=== PATIENT | male | born 1945 | race Caucasian/White ===

== ENCOUNTER 2018-04-08 09:29 | Observation (INO) ==
[2018-04-08] MEDS ORDERED: Ondansetron 4 MG/2 ML VIAL IVP PRN (13:27)
--- NOTE | 2018-04-08 13:33 | Internal Med History&Physical ---
Date of Encounter: 04/08/18 Time of Encounter: 13:33 Internal Medicine - H&P: HPI Chief complaint: transferred due to elevated troponin Plans for Post Hospital Care: Home History of present illness: Mr. Fernandez is a 72 year old male asked medical history of coronary artery disease with last stent in 2014, diabetes, hypertension, depression, atrial fibrillation, CHF was sent in from [facility] for elevated troponin and NSTEMI. Patient went to ER with complaint of confusion brought in by family for past 2-3 weeks increased or past week. Unsure whether patient is compliant with his medication. Patient did fell about 3 weeks ago and bumped into his head. Patient was evaluated in ER with head CT which did not show any signs of bl eeding however showed encephalomalacia. Patient was also found to have elevated troponin which trended up with peak of 0.255. EKG showed atrial fibrillation without any ischemic changes. Patient did not have any chest pain at any point in time. Patient was started on heparin drip and transferred to our hospital. Patient family mentioned that he did appear to have some shortness of breath with exertion and that he appeared confused at times. BMP, Urine tox screening and urinalysis were unremarkable at [facility]. Patient did have mild white count of 11.9. His INR was subtherapeutic. Patient's family did mention that his blood pressure was high in the 190s during initial evaluation at [facility]. He denied any history of fevers chills nausea vomiting abdominal pain urinary or bowel complaints. Family mentioned he does have some leg swelling on a chronic basis and midodrine have gained some weight with past 6-8 months. Patient was interviewed at bedside on floors with family at bedside. He denied any chest pain nausea vomiting sweating or palpitation. As per family patient still not completely at his baseline. Denies any weakness or numbness or any vision difficulties. He does have some left-sided hearing problem for past 6 months. Patient currently on nitroglycerin drip and heparin drip. Patient wants to eat. Past Med Surg Social Fam HX - Past Medical History Medical history: atrial fibrillation, CHF, coronary artery disease, myocardial infarction Psychiatric history: anxiety, depression - Past Surgical History Additional surgical history: heart stents, basal cell carcinoma Lt face. - Social History Smoking Status: Former smoker Alcohol use: none Drug use: none - Family History Father Age at : 52 Cause of : heart attack Hx Family Cardiac Disorders: Yes (pacemaker at age 36) Mother Hx Family Cancer: Yes (lung cancer) Internal Medicine - H&P: Meds Aspirin [Adult Aspirin] 81 mg PO DAILY 04/08/18 [History] Carvedilol [Coreg] 12.5 mg PO BIDWM 04/08/18 [History] Escitalopram [Lexapro] 20 mg PO DAILY 04/08/18 [History] Glimepiride [Amaryl] 1 mg PO BIDWM 04/08/18 [History] Warfarin [Coumadin] 8 mg PO DAILY@1800 04/08/18 [History] metFORMIN [Glucophage] 1,000 mg PO BIDWM 04/08/18 [History] Allergy/AdvReac Type Severity Reaction Status Date / Time bee venom protein (honey bee) Allergy Anaphylaxis Verified 04/08/18 13:18 All Systems PM: A 10-system review of systems was performed and is negative for pertinent findings except as documented above in the HPI. - Constitutional Vitals: Temp Pulse Resp BP Pulse Ox 98.4 F 81 85 127/79 97 04/08/18 12:04 04/08/18 12:04 04/08/18 12:04 04/08/18 12:04 04/08/18 12:04 Exam: Constitutional: Vitals as noted. Conversant. No Apparent Distress. Morbidly obese Eyes : Sclera white, conjunctiva clear, no lid lag, PEARLA. Lt lower eyelid ectropion from facial scar. ENT : decreased hearing on Lt . Oropharyngeal exam unremarkable. Normal appearing external canal. couldnt perform otoscopic exam as instrument unavailable. Respiratory : Clear to auscultation bilaterally. No accessory muscle use, rales, rhonchi or wheezes Cardiovascular : RRR, +S1, +S2. no murmur, gallop, rubs. No chest wall tenderness GI/Abdominal : Obese, Soft, Non-tender, Non-distended, normal bowel sounds, soft, no peritoneal signs. no orgenomegaly or mass appreciated. no hernia. Musculoskeletal: no deformity noted. 1+ b/l edema, pulses palpable and symmetrical in UE/LE. no calf tenderness. Neurological: AO X3, CN II-XII grossly intact, grossly normal motor and sensory exam. Left sided facial scar. Skin: No skin rash, lesions or ulcers noted. Internal Med - H&P Results - Labs CBC & Chem 7: 04/08/18 13:13 Labs: Labs, CXR , CT reports reviewed - EKG Data -: EKG Interpreted by Myself (afib without acute ischemic changes) - Assessment and plan (1) Elevated troponin I level Current Visit: Yes Status: Acute Assessment and plan: - Peaked at 0.255 - We will trend troponin - Currently without chest pain - Echocardiogram - Possibly related to uncontrolled hypertension versus NSTEMI. Continue heparin for now - Cardiology consulted. (2) Confusion Current Visit: Yes Status: Acute Assessment and plan: - CT unremarkable - No focal deficit or weakness. - Given patient a history of A. fib and INR subtherapeutic we will obtain MRI to rule out ischemic stroke. However if symptoms ongoing for weeks it should appear on CT scan. 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 Rate controlled - Currently on heparin drip. Qualifiers: Atrial fibrillation type: chronic Qualified Code(s): I48.2 - Chronic atrial fibrillation (5) DVT prophylaxis Current Visit: Yes Status: Acute Assessment and plan: On heparin drip (6) HTN (hypertension) Current Visit: Yes Status: Acute Assessment and plan: - Currently blood pressure controlled. - Continue home Coreg and monitor blood pressure for now. Qualifiers: Hypertension type: essential hypertension Qualified Code(s): I10 - Essential (primary) hypertension (7) Depression Current Visit: Yes Status: Acute Assessment and plan: Continue home Lexapro Qualifiers: Depression Type: unspecified Qualified Code(s): F32.9 - Major depressive di sorder, single episode, unspecified (8) Hypertensive emergency Current Visit: Yes Status: Acute Assessment and plan: - Possible on presentation at [facility] leading to elevated troponin - Monitor and management as above - When necessary hydralazine 10 q8 IV for sbp >160 (9) CAD (coronary artery disease) Current Visit: Yes Status: Acute Assessment and plan: - Continue aspirin and Coreg - Unclear why patient not on statin - We will start patient on atorvastatin 40 mg at bedtime Qualifiers: Coronary Disease-Associated Artery/Lesion type: [place] artery [place] vs. transplanted heart: [place] heart Associated angina: without angina Qualified Code(s): I25.10 - Atherosclerotic heart disease of [place] coronary artery without angina pectoris - Time Spent With Patient Total time spent is greater than 50% in coordination of care (as documented) at patient's floor/unit and/or counseling patient:
[2018-04-08] MEDS ORDERED: *HR* Dextrose 50 % in Water (Syg) 50 ML SYRINGE IVP PRN (13:36)
[2018-04-08] MEDS ORDERED: Dextrose 4 GM Chewable Tablets PO PRN ×2 (13:36)
[2018-04-08] MEDS ORDERED: D5% in Water 1,000 ML IVC PRN (13:36)
[2018-04-08] MEDS ORDERED: Dextrose Gel 15 GM/37.5 ML TUBE PO PRN ×2 (13:36)
[2018-04-08] MEDS ORDERED: *HR* Heparin 5,000 UNIT/ML VIAL IVP PRN (13:40)
[2018-04-08 14:07] LABS: Heparin anti-factor XA UFH 0.21 IU/mL (0.30-0.70)
[2018-04-08 14:12] LABS: Hematocrit 43.8 % (37.5-50.1); Hemoglobin 14.5 g/dL (12.9-16.9); Mean Corpuscular HGB Conc 33.1 g/dL (31.6-35.5); Mean Corpuscular Hemoglobin 29.8 pg (28.0-33.3); Mean Corpuscular Volume 89.9 fL (83.0-100.0); Mean Platelet Volume 11.3 fL (9.4-12.4); Platelet Count 208 K/mcL (140-400); Red Blood Count 4.87 M/mcL (4.19-5.50); Red Cell Distribution Width 12.8 % (11.5-14.5)
[2018-04-08 14:25] LABS: INR 1.4; Prothrombin Time 15.5 Seconds (9.4-12.1)
[2018-04-08] MEDS: Heparin 25,000 UNIT/500 ML D5W 25,000 UNIT/500 ML BAG IVC SCH (14:30)
[2018-04-08] MEDS: *HR* Heparin 5,000 UNIT/ML VIAL IVP PRN ×2 (14:30→21:41)
--- NOTE | 2018-04-08 15:12 | Cardiology Consult Note ---
<Rubio Moss - Last Filed: 04/08/18 15:31> Date of Encounter: 04/08/18 Time of Encounter: 15:10 Assessment and Plan Discussion w patient/family: The assessment and plan as outlined above was discussed with the patient and/or family members who expressed understanding and agreement. All questions were answered. Thank you for involving us in the care of your patient. Please call with any questions. History of Present Illness Consult date: 04/08/18 Consult reason: Elevated Troponin Chief complaint: AMS History of present illness: Mr. Fernandez is a 72 year old male presenting as transfer from [facility] for elevated Troponin. Patient with family at bedside States PMHx of NM x2 with 4 stents placed (most recent in 2014) Significant cardiac meds: ASA, carvedilol, and Coumadin. Patient family admit to significant past family history of stroke and heart attack. History of present illness as documented by staff at [facility] states patient has been confused for the past several months and has also been experiencing exertional dyspnea and fatigue. states patient fell about 3 weeks ago hit his head on the bathtub did not seek treatment at that time. states the patient's confusion has been getting worse since that event. is unsure if patient is compliant with his medication and she leaves during the day today at work. describes several episodes of confusion such as the patient looking for cigarettes when he has not been a smoker for the past 20 years. Patient also states that he has been asking if the [place] tree has been taken down although this was done sometime ago. Notable labs at [facility] included an INR of 1.35 Troponins elevated with peak at 0.255 EKG performed today at outside facility shows atrial fibrillation with a rate of 86 bpm. There are no signs of acute ischemic change. EKG is generally consistent with previous EKG performed on April 07. Patient seen and evaluated at bedside. Upon initial evaluation patient is lying in hospital bed, he is awake, alert, engaged conversation answering questions appropriately, he is in no acute distress, nondiaphoretic, noncyanotic, there are no overt focal neurological deficits appreciated. Patient admits to 5 out of 10 headache as well as fatigue and weakness. Patient denies shortness of breath at rest but admits to profound exertional dyspnea. Patient denies chest pain, nausea/abdominal pain, paresthesias, lightheadedness dizziness. -Patient asymptomatic at this time from a cardiac perspective -EKG without signs of acute ischemic change > Serial troponins overnight > Echocardiogram > Repeat EKG Past Med Surg Social Fam HX - Past Medical History Medical history: atrial fibrillation, CHF, diabetes, myocardial infarction Psychiatric history: anxiety, depression - Past Surgical History Surgical History: angioplasty/stent Additional surgical history: basal cell carcinoma removal (face), stents x4 - Social History Smoking Status: Former smoker Smokeless Tobacco Status: No Alcohol use: none Drug use: none - Family History Father Age at : 52 Cause of : heart attack Hx Family Cardiac Disorders: Yes (pacemaker at age 36) Mother Hx Family Cancer: Yes (lung cancer) Medications and Allergies Aspirin [Adult Aspirin] 81 mg PO DAILY 04/08/18 [History] Carvedilol [Coreg] 12.5 mg PO BIDWM 04/08/18 [History] Escitalopram [Lexapro] 20 mg PO DAILY 04/08/18 [History] Glimepiride [Amaryl] 1 mg PO BIDWM 04/08/18 [History] Warfarin [Coumadin] 8 mg PO DAILY@1800 04/08/18 [History] metFORMIN [Glucophage] 1,000 mg PO BIDWM 04/08/18 [History] Allergy/AdvReac Type Severity Reaction Status Date / Time bee venom protein (honey bee) Allergy Anaphylaxis Verified 04/08/18 13:18 All Systems Review: The remainder of the systems were reviewed and are negative Review of Systems: As per history of present illness. All systems reviewed and negative except as stated Physical Examination Vital Signs, Last 4 Hours Temp Pulse Resp BP Pulse Ox 04/08/18 12:04 98.4 F 81 85 127/79 97 General: Conversant, No Apparent Distress HEENT: Atraumatic, Normocephaly, Mucus Membranes Moist Neck: No JVD Cardiac: Reg Rate and Rhythm, Normal S1 and S2, No Murmur Lungs: Normal Breath Sounds, No Wheeze, Rales, Rhonchi Neuro: Alert and responsive, No focal deficits noted, Other (Patient is moving all 4 limbs spontaneously without signs of overt focal weakness) Abdomen: Soft, Non-Tender Musculoskeletal: No Chest Wall Tenderness Extremities: No Clubbing, No Cyanosis, No Edema, Normal Pulses Results 04/08/18 13:13 Lab Results 04/08/18 04/08/18 13:13 13:13 WBC 10.1 Hgb 14.5 Hct 43.8 Plt Count 208 INR 1.4 - Imaging and Cardiology Echo: pending - EKG Interpretation EKG results cardiology: personally reviewed, no diagnostic ischemia Consult Discharge Plan - Plan Referrals: Bebe Hansen [Primary Care Provider] - <Sonya Lakhani - Last Filed: 04/09/18 11:47> Date of Encounter: 04/09/18 - Attending Attestation Patient was seen and evaluated independently by me 2 pm. Findings, assessment and plan were discussed at length with patient, questions answered. Agree with nurse practitioner's/resident's documentation. Addition as follows, 72 yoCM ho CAD PCI (OSH), PAF on warfarin, HTN. P/w confusion to OSED with significantly elevated BP in ED 160s/100s. Consulted for mildly elevated troponin peaked 0.3 down trended on heparin drip. No FARLEY, cp, dyspnea, palpitations. ECG afib w/o RVR. TTE pending. CTA, IR, no LE edema A: AMS, CVA w/u ongoing HTN BP fluctuation mild troponin elevation, type II likely CAD, no angina PAF, on warfarin, subtherapeutic INR, rate ctr ok P: pending brain MRI pending TTE BP ctr c/w heparin drip Sonya Lakhani MD, PhD Assessment and Plan Discussion w patient/family: The assessment and plan as outlined above was discussed with the patient and/or family members who expressed understanding and agreement. All questions were answered. Thank you for involving us in the care of your patient. Please call with any questions. History of Present Illness History of present illness: Mr. Fernandez is a 72 year old male All Systems Review: The remainder of the systems were reviewed and are negative Results 04/09/18 04:14 04/09/18 04:14 Lab Results 04/08/18 04/08/18 04/08/18 13:13 13:13 15:21 WBC 10.1 Hgb 14.5 Hct 43.8 Plt Count 208 INR 1.4 Sodium Potassium Chloride Carbon Dioxide BUN Creatinine Glucose Calcium Total Bilirubin AST ALT Alkaline Phosphatase Troponin I 0.07 H* 04/09/18 04/09/18 04:14 04:14 WBC 9.4 Hgb 14.6 Hct 43.9 Plt Count 209 INR Sodium 137 Potassium 3.5 Chloride 104 Carbon Dioxide 25 BUN 14 Creatinine 1.01 Glucose 161 H Calcium 8.6 Total Bilirubin 0.9 AST 12 L ALT 10 Alkaline Phosphatase 69 Troponin I 0.06 H*
[2018-04-08] MEDS ORDERED: *HR* Glimepiride 2 MG TABLET PO SCH (17:00)
[2018-04-08] MEDS ORDERED: *HR* Metformin 500 MG TABLET PO SCH (17:00)
[2018-04-08] MEDS: Insulin LISPRO 300 UNITS/3 ML VIAL SQ SCH (17:04)
[2018-04-08] MEDS ORDERED: *HR* Warfarin 4 MG TABLET PO SCH (18:00)
[2018-04-08] MEDS ORDERED: Perflutren Lipid Microsphere 1.3 ML in 0.9 % Sodium Chloride 8.7 ML IVP ONE (18:27)
[2018-04-09 04:27] LABS: Basophils # 0.1 K/mcL (0.0-0.2); Basophils % 0.9 %; Eosinophils # 0.4 K/mcL (0.0-0.6); Eosinophils % 4.5 %; Hematocrit 43.9 % (37.5-50.1); Hemoglobin 14.6 g/dL (12.9-16.9); Immature Granulocytes % 0.2 % (0-4); Lymphocytes # 2.3 K/mcL (0.6-4.6); Lymphocytes % 24.2 %; Mean Corpuscular HGB Conc 33.3 g/dL (31.6-35.5); Mean Corpuscular Hemoglobin 29.7 pg (28.0-33.3); Mean Corpuscular Volume 89.4 fL (83.0-100.0); Monocytes # 0.7 K/mcL (0.0-1.3); Neutrophils # 5.9 K/mcL (1.6-8.9); Platelet Count 209 K/mcL (140-400); Red Blood Count 4.91 M/mcL (4.19-5.50); Red Cell Distribution Width 12.7 % (11.5-14.5); Segmented Neutrophils % 63.2 %
[2018-04-09 04:47] LABS: Alanine Aminotransferase 10 Units/L (7-52); Albumin 3.4 g/dL (3.5-5.7); Albumin/Globulin Ratio 1.2 (1.1-2.2); Alkaline Phosphatase 69 Units/L (34-104); Aspartate Amino Transferase 12 Units/L (13-39); BUN/Creatinine Ratio 14 (6-26); Bilirubin,Total 0.9 mg/dL (0.3-1.0); Blood Urea Nitrogen 14 mg/dL (8-23); Calcium 8.6 mg/dL (8.6-10.3); Carbon Dioxide 25 mEq/L (23-29); Chloride 104 mEq/L (98-107); Globulin 2.9 g/dL (2.4-3.5); Glucose 161 mg/dL (70-105); Osmolality,Calculated 288 (280-300); Potassium 3.5 mEq/L (3.5-5.1); Sodium 137 mEq/L (136-145); Total Protein 6.3 g/dL (6.4-8.9); eGFR For Non-African Americans > 60 (> 60)
[2018-04-09 04:52] LABS: Troponin I 0.06 ng/mL (< 0.04)
[2018-04-09] MEDS: Insulin LISPRO 300 UNITS/3 ML VIAL SQ SCH ×3 (07:42→16:46)
[2018-04-09] MEDS: Aspirin Enteric Coated 81 MG Tablet PO SCH (07:42)
[2018-04-09] MEDS: Heparin 25,000 UNIT/500 ML D5W 25,000 UNIT/500 ML BAG IVC SCH (07:44)
[2018-04-09 08:00] LABS: Estimated Average Glucose 177 mg/dl; Hemoglobin A1C 7.8 %
--- NOTE | 2018-04-09 08:53 | Cardiology Progress Note ---
<Rubio Moss - Last Filed: 04/09/18 12:04> Date of Encounter: 04/09/18 Time of Encounter: 08:51 Assessment and Plan Discussion w patient/family: The assessment and plan as outlined above was discussed with the patient and/or family members who expressed understanding and agreement. All questions were answered. Thank you for involving us in the care of your patient. Please call with any questions. Subjective Principal diagnosis: Altered mental status Interval history: Patient seen and evaluated bedside. Upon initial evaluation patient is sitting upright onset of hospital bed, he is awake, alert, engaged to conversation answering questions appropriately without conversational dyspnea. Patient is in no acute distress, he is noncyanotic, nondiaphoretic, and appears to have no acute focal neurological deficits appreciated. Patient states that he feels well today and would like to go home. Patient admits to some nausea with eating. Patient denies chest pain, shortness of breath, neck or back pain, generalized abdominal pain, paresthesias in his extremities, lightheadedness or dizziness. Patient found to have acute left sided thalamic lacunar stroke on MRI Echocardiogram shows "LVEF 60-65%. with Moderate concentric left ventricular hypertrophy...Mild mitral regurgitation." Troponins trending downward, currently 0.06. > Continue heparin gtt pending neurology recommendations for restarting Coumadin. > Cardiology will sign off. Please re-consult as needed. Objective Vital Signs, Last 4 Hours Temp Pulse Resp BP Pulse Ox 04/09/18 06:22 98.2 F 74 20 164/98 96 General: Conversant, No Apparent Distress HEENT: Atraumatic, Normocephaly, Mucus Membranes Moist Neck: No JVD Cardiac: Normal S1 and S2, No Murmur, Other (Irregular rhythm noted - known history of A. fib. Otherwise regular rate) Lungs: Normal Breath Sounds, No Wheeze, Rales, Rhonchi Neuro: Alert and responsive, No focal deficits noted Abdomen: Soft, Non-Tender Musculoskeletal: No Chest Wall Tenderness Extremities: No Clubbing, No Cyanosis, No Edema, Normal Pulses Results 04/09/18 04:14 04/09/18 04:14 Lab Results 04/08/18 04/08/18 04/08/18 13:13 13:13 15:21 WBC 10.1 Hgb 14.5 Hct 43.8 Plt Count 208 INR 1.4 Sodium Potassium Chloride Carbon Dioxide BUN Creatinine Glucose Calcium Total Bilirubin AST ALT Alkaline Phosphatase Troponin I 0.07 H* 04/09/18 04/09/18 04:14 04:14 WBC 9.4 Hgb 14.6 Hct 43.9 Plt Count 209 INR Sodium 137 Potassium 3.5 Chloride 104 Carbon Dioxide 25 BUN 14 Creatinine 1.01 Glucose 161 H Calcium 8.6 Total Bilirubin 0.9 AST 12 L ALT 10 Alkaline Phosphatase 69 Troponin I 0.06 H* - EKG Interpretation EKG results cardiology: personally reviewed, no diagnostic ischemia (Atrial fibrillation at a rate of 84 bpm.) Consult Discharge Plan - Plan Referrals: Bebe Hansen [Primary Care Provider] - <Sonya Lakhani - Last Filed: 04/09/18 14:02> Date of Encounter: 04/09/18 Assessment and Plan Discussion w patient/family: The assessment and plan as outlined above was discussed with the patient and/or family members who expressed understanding and agreement. All questions were answered. Thank you for involving us in the care of your patient. Please call with any questions. Objective Vital Signs, Last 4 Hours Temp Pulse Resp BP Pulse Ox 04/09/18 13:49 98.1 F 79 20 138/85 93 Results 04/09/18 04:14 04/09/18 04:14 Lab Results 04/08/18 04/08/18 04/08/18 13:13 13:13 15:21 WBC 10.1 Hgb 14.5 Hct 43.8 Plt Count 208 INR 1.4 Sodium Potassium Chloride Carbon Dioxide BUN Creatinine Glucose Calcium Total Bilirubin AST ALT Alkaline Phosphatase Troponin I 0.07 H* 04/09/18 04/09/18 04:14 04:14 WBC 9.4 Hgb 14.6 Hct 43.9 Plt Count 209 INR Sodium 137 Potassium 3.5 Chloride 104 Carbon Dioxide 25 BUN 14 Creatinine 1.01 Glucose 161 H Calcium 8.6 Total Bilirubin 0.9 AST 12 L ALT 10 Alkaline Phosphatase 69 Troponin I 0.06 H* - Attending Attestation Patient was seen and evaluated independently by me. Findings, assessment and plan were discussed in detail with patient, questions answered. Agree with nurse practitioner's/resident's documentation. Addition as follows, Interim Brain MRI acute L-thalamus lucunar infarct. No complaint, generally feels better. No cp, palpitations, no O2 requirement. BP mild fluctuation, IIR, CTA, no LE edema. TTE EF 60-65%, mod LVH, RV nl, mild MR, no PH A: Acute L-thalamus lucunar infarct Mild troponin elevation, likely type II PAF, subtherapeutic INR, on heparin drip, rate ctr ok HTN CAD P: resume warfarin after ok by neurology c/w ASA, statin, coreg BP control Sonya Lakhani MD, PhD
--- NOTE | 2018-04-09 10:10 | Internal Med Progress Note ---
Hospitalist Progress Note - Encounter Date of Encounter: 04/09/18 Time of Encounter: 10:10 - Subjective Interval History: patient seen and examined this morning at beside. Denies new complains. AOx2. Denies chest pain, shortness of breath, urinary or bowel complains. - Exam Vitals: Temp Pulse Resp BP Pulse Ox 98.2 F 74 20 164/98 96 04/09/18 06:22 04/09/18 06:22 04/09/18 06:22 04/09/18 06:22 04/09/18 06:22 Exam: Constitutional: Vitals as noted. Conversant. No Apparent Distress. Morbidly obese Eyes : PEARLA. Lt lower eyelid ectropion from facial scar. ENT : decreased hearing on Lt. Respiratory : Clear to auscultation bilaterally. No accessory muscle use, rales, rhonchi or wheezes Cardiovascular : RRR, +S1, +S2. no murmur, gallop, rubs. No chest wall tenderness GI/Abdominal : Obese, Soft, Non-tender. Non-distended, normal bowel sounds, soft, no peritoneal signs. no orgenomegaly or mass appreciated. no hernia. Musculoskeletal: no deformity noted. 1+ b/l edema, pulses palpable and symmetrical in UE/LE. no calf tenderness. Neurological: AO X2, CN II-XII grossly intact, grossly normal motor and sensory exam. Left sided facial scar. Skin: No skin rash, lesions or ulcers noted. - Assessment and Plan (1) Elevated troponin I level Current Visit: Yes Status: Acute (2) Confusion Current Visit: Yes Status: Acute (3) Diabetes type 2, controlled Current Visit: Yes Status: Acute (4) Afib Current Visit: Yes Status: Acute (5) DVT prophylaxis Current Visit: Yes Status: Acute (6) HTN (hypertension) Current Visit: Yes Status: Acute (7) Depression Current Visit: Yes Status: Acute (8) Hypertensive emergency Current Visit: Yes Status: Acute (9) CAD (coronary artery disease) Current Visit: Yes Status: Acute - Summary of Assessment and Plan Summary of Assessment and Plan: Elevated troponin I level - Peaked at 0.255. Trending down 0.06 this morning. - ECHO with LVEF 60-65%. Moderate concentric left ventricular hypertrophy, Indeterminate diastolic function. - Possibly related to uncontrolled hypertension versus NSTEMI. Continue heparin for now - Cardiology following Confusion - CT unremarkable - No focal deficit or weakness. - MRI with let lacunar thallamic stroke. - c/w aspirin. - Neurology consulted. Diabetes type 2, controlled - Hold home metformin and glimepiride - c/w diabetic diet, Accu-Cheks and insulin sliding scale Afib - on heparin drip - Continue home Coreg. Rate controlled - Currently on heparin drip. Will restart coumadin on discharge HTN - Currently blood pressure controlled. - Continue home Coreg and monitor blood pressure for now. Depression - c/w home Lexapro CAD - C/w aspirin and Coreg - started on atorvastatin 40 mg at bedtime - Time Spent with Patient Total time spent is greater than 50% in coordination of care (as documented) at patient's floor/unit and/or counseling patient: Internal Medicine: Result - Labs CBC & Chem 7: 04/09/18 04:14 04/09/18 04:14 Labs: Short CBC 04/08/18 04/09/18 Range/Units 13:13 04:14 WBC 10.1 9.4 (4.3-11.1) K/mcL Hgb 14.5 14.6 (12.9-16.9) g/dL Hct 43.8 43.9 (37.5-50.1) % Plt Count 208 209 (140-400) K/mcL Neutrophils # 5.9 (1.6-8.9) K/mcL BMP 04/09/18 04:14 Sodium 137 Potassium 3.5 Chloride 104 Carbon Dioxide 25 BUN 14 Creatinine 1.01 Glucose 161 H Calcium 8.6 Cardiac Enzymes 04/08/18 04/09/18 Range/Units 15:21 04:14 Troponin I 0.07 H* 0.06 H* (< 0.04) ng/mL Liver Function 04/09/18 Range/Units 04:14 Total Bilirubin 0.9 (0.3-1.0) mg/dL AST 12 L (13-39) Units/L ALT 10 (7-52) Units/L Alkaline Phosphatase 69 (34-104) Units/L Albumin 3.4 L (3.5-5.7) g/dL - ABG Interpretation ABG results: PT/INR, D-dimer PT 15.5 Seconds (9.4-12.1) H 02/21/19 13:13 - Impressions Impressions Brain MRI 04/08/18 14:30 IMPRESSION: Acute lacunar infarct within the left thalamus. The findings were sent to the Radiology Results Communication Center at 9:01 pm on 04/08/2018to be communicated to a licensed caregiver. D/ / Raymond Owens MD / Raymond Owens MD Interpreting Provider: Raymond Owens MD Consult Discharge Plan - Plan Referrals: Bebe Hansen [Primary Care Provider] - (3) Diabetes type 2, controlled Qualifiers: Diabetes mellitus coagulation operator insulin use: without fci use Diabetes mellitus complication status: with unspecified complications Qualified Code(s): E11.8 - Type 2 diabetes mellitus with unspecified complications (4) Afib Qualifiers: Atrial fibrillation type: chronic Qualified Code(s): I48.2 - Chronic atrial fibrillation (6) HTN (hypertension) Qualifiers: Hypertension type: essential hypertension Qualified Code(s): I10 - Essential (primary) hypertension (7) Depression Qualifiers: Depression Type: unspecified Qualified Code(s): F32.9 - Major depressive disorder, single episode, unspecified (9) CAD (coronary artery disease) Qualifiers: Coronary Disease-Associated Artery/Lesion type: [place] artery [place] vs. transplanted heart: [place] heart Associated angina: without angina Qualified Code(s): I25.10 - Atherosclerotic heart disease of [place] coronary artery without angina pectoris
--- NOTE | 2018-04-09 10:57 | Electrocardiograph Report ---
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
--- NOTE | 2018-04-09 16:39 | Neurology - Consult Note ---
Addendum entered and electronically signed by Tor Yancey MD 04/09/18 17:39: I deed and face to face evaluation with the patient's in the presence of nurse practitioner Bo Thurman. Case discussed and imaging studies reviewed together and I agree with his history taking, physical examination, assessment and plan outlined below. Original Note: Date of Encounter: 04/09/18 Time of Encounter: 16:34 Assessment and Plan (1) CVA (cerebral vascular accident) Current Visit: Yes Status: Acute episodes of confusion, difficulties with speech 3 weeks worsening over last week. Also having falls. MRI brain with findings of an acute lacunar infarct within the left thalamus. TTE-LVEF 60-65%, moderate concentric LVH, mild MR carotid duplex pending- preliminary reading shows a bilateral carotid within normal limits, nonstenotic plaque noted bilaterally Patient still somewhat confused at time of my assessment. still appears to have somewhat delayed cognition with speech difficulty and difficulty with word finding. he is also reporting diminished sensation to his right hand. recommend continue aspirin and statin. the size of his CVA is small this is not considered a contraindication for anticoagulation Qualifiers: Laterality of affected vessel: unspecified Qualified Code(s): I63.019 - Cerebral infarction due to thrombosis of unspecified vertebral artery History of Present Illness Chief complaint: CVA HPI: Mr. Fernandez is a 72 year old male a PMH of CAD, A. fib, CHF, GA, diabetes, HTN, depression. the patient is somewhat confused and a poor historian. Most information obtained from chart review and physician report. Brought in by family to the ED with concerns for confusion, falls. The family reports that the patient fell approximately 3 weeks ago and has been having intermittent confusion since. Over the past week this has worsened. They note that he has had some issues with hypertension with SBP in the 190s and that this was seen prior to transfer from outlying hospital. The patient denies any headaches, visual changes, dysarthria, dysphagia, unilateral weakness or paresthesias. He does admit to delayed speech and difficulty with word finding and does note that he seems to be a little confused lately. Given his symptoms and MRI was obtained and found an acute lacunar infarct within the left thalamus.neurology consulted to assist with management of stroke. Past Med Surg Social Fam HX - Past Medical History Medical history: atrial fibrillation, CHF, coronary artery disease, myocardial infarction Psychiatric history: anxiety, depression - Past Surgical History Surgical History: angioplasty/stent Additional surgical history: heart stents, basal cell carcinoma Lt face. - Social History Smoking Status: Former smoker Smokeless Tobacco Status: No Alcohol use: none Drug use: none - Family History Father Age at : 52 Cause of : heart attack Hx Family Cardiac Disorders: Yes (pacemaker at age 36) Mother Hx Family Cancer: Yes (lung cancer) Medications and Allergies Aspirin [Adult Aspirin] 81 mg PO DAILY 04/08/18 [History] Carvedilol [Coreg] 12.5 mg PO BIDWM 04/08/18 [History] Escitalopram [Lexapro] 20 mg PO DAILY 04/08/18 [History] Glimepiride [Amaryl] 1 mg PO BIDWM 04/08/18 [History] Warfarin [Coumadin] 8 mg PO DAILY@1800 04/08/18 [History] metFORMIN [Glucophage] 1,000 mg PO BIDWM 04/08/18 [History] Allergy/AdvReac Type Severity Reaction Status Date / Time bee venom protein (honey bee) Allergy Anaphylaxis Verified 04/08/18 13:18 All Systems: The remainder of the systems were reviewed and are negative Review of Systems: REVIEW OF SYSTEMS GENERAL: Negative for any nausea, vomiting, fevers, chills, or weight loss, fatigue NEUROLOGIC: Negative for any visual changes, facial asymmetry, dysphagia, dysarthria, hemiparesis, hemisensory deficitsdaily, unilateral weakness or numbness/tingling, positive--difficulty with word finding, confusion and falls PSYCH: negative--agitation/irritability, personality change HEENT: Negative for any head trauma, neck trauma CARDIAC: Negative for any chest pain, dyspnea positive--HTN GASTROINTESTINAL: Negative for any N/V/D GENITOURINARY: Negative for any dysuria, incontinence. Physical Examination - Vital Signs Vital Signs: Initial Vital Signs Temp Pulse Resp BP Pulse Ox 98.4 F 81 85 127/79 97 04/08/18 12:04 04/08/18 12:04 04/08/18 12:04 04/08/18 12:04 04/08/18 12:04 - Exam Exam: Examination: General Examination: *CONSTITUTIONAL: no acute distress *GENERAL APPEARANCE OF PATIENT obese ill-appearing male *EYES: pupils equal, round, reactive to light and accommodation, conjunct lexie clear without masses or ulcerations, fundi normal. Musculoskeletal: *GAIT AND STATION sitting upright in bed with erect posture *ASSESSMENT OF MUSCLE STRENGTH IN THE UPPER AND LOWER EXTREMITIES bilateral deltoid, bicep, tricep, sharepoint consultant strength, hip flexors ,anterior tibialis, dorsoflexion of the foot 4/5 *MUSCLE TONE IN THE UPPER AND LOWER EXTREMITIES normal. No abnormal movements, fasciculations or atrophy identified. Neurological: *ORIENTATION to person, disoriented somewhat to situation and place *RECURRENT AND REMOTE MEMORY intact *ATTENTION AND CONCENTRATION are normal *LANGUAGE FUNCTION no significant aphasia or dysarthia was noted. *FUND OF KNOWLEDGE aware of current events, past history, vocabulary *MENTAL attention span and concentration normal. *CN II optic fundi were normal, no papilledema noted. *CN III,IV, PERRLA extraocular eye movements were full, no nystagmus and no ptosis noted. *CN V shows normal sensation and jaw opens symmetrically. *CN VII shows normal facial movement symmetrically, upper and lower bilaterally. *CN VIII shows no significant hearing loss on exam *CN IX,,X palate elevated symmetrically *CN XI normal strength in the sternocleidomastoid muscles, symmetrical shoulder shrugging. *CN XII tongue protruded in the midline, with normal strength and movement. *SENSORY EXAMINATION light touch intactLeft upper extremity, bilateral lower extremities. He does note some diminished sensation to his right hand. *REFLEXES: deep tendon reflexes were normal and symmetrical , grade 1/4 diffusely, no pathological reflexes were noted. *CEREBELLAR TESTING normal finger to nose, heel/knee/bardales *PAIN LEVEL 0 Results - Laboratory Findings CBC and BMP: 04/09/18 04:14 04/09/18 04:14 Abnormal lab findings: Abnormal lab results PT 15.5 Seconds (9.4-12.1) H 04/08/18 13:13 Heparin Anti-Xa, Unfract 0.73 IU/mL (0.30-0.70) H 04/09/18 10:17 Glucose 161 mg/dL (70-105) H 04/09/18 04:14 POC Glucose 152 mg/dL (70-99) H 04/08/18 21:03 Hemoglobin A1c 7.8 % (-5.6) H 04/09/18 04:14 AST 12 Units/L (13-39) L 04/09/18 04:14 Troponin I 0.06 ng/mL (< 0.04) H* 04/09/18 04:14 Serum Total Protein 6.3 g/dL (6.4-8.9) L 04/09/18 04:14 Albumin 3.4 g/dL (3.5-5.7) L 04/09/18 04:14 - Diagnostic Findings Additional findings: MR/MR head/brain wo con IMPRESSION: Acute lacunar infarct within the left thalamus. LVEF 60-65%. Moderate concentric left ventricular hypertrophy. Indeterminate diastolic function. Normal right ventricular structure and function. Mild mitral regurgitation. No evidence of pulmonary hypertension. Consult Discharge Plan - Plan Referrals: Bebe Hansen [Primary Care Provider] - 04/14/18 8:30 am (Please follow up as schedule...)
[2018-04-10] MEDS: Heparin 25,000 UNIT/500 ML D5W 25,000 UNIT/500 ML BAG IVC SCH (01:09)
[2018-04-10] MEDS: Insulin LISPRO 300 UNITS/3 ML VIAL SQ SCH ×2 (07:39→13:35)
[2018-04-10 10:14] VITALS: BP 122/81
--- NOTE | 2018-04-10 10:52 | Discharge Summary ---
- NOTES TO OUTPATIENT PROVIDER Notes to Outpatient Provider: Hemoglobin A1c is 7.9. We will need adjustment of his diabetes medications. Started on atorvastatin and lisinopril. Resumed on home warfarin and will need close monitoring of INR in 3-4 days. Has diastolic CHF. Consider keeping on small dose of Lasix. 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 Orders not resulted at time of discharge: Pending orders 04/11/18 00:30 Heparin anti-factor XA UFH [COAG] Timed Date of Encounter: 04/10/18 Time of Encounter: 10:52 - Discharge Diagnosis (1) Elevated troponin I level Priority: Primary Status: Acute (2) Confusion Priority: Primary Status: Acute (3) Diabetes type 2, controlled Priority: Secondary Status: Acute Qualifiers: Diabetes mellitus terminal carman insulin use: without care home use Diabetes mellitus complication status: with unspecified complications Qualified Code(s): E11.8 - Type 2 diabetes mellitus with unspecified complications (4) Afib Priority: Secondary Status: Acute Qualifiers: Atrial fibrillation type: chronic Qualified Code(s): I48.2 - Chronic atrial fibrillation (5) DVT prophylaxis Priority: Secondary Status: Acute (6) HTN (hypertension) Priority: Secondary Status: Acute Qualifiers: Hypertension type: essential hypertension Qualified Code(s): I10 - Essential (primary) hypertension (7) Depression Priority: Secondary Status: Acute Qualifiers: Depression Type: unspecified Qualified Code(s): F32.9 - Major depressive disorder, single episode, unspecified (8) Hypertensive emergency Priority: Primary Status: Acute (9) CAD (coronary artery disease) Priority: Secondary Status: Acute Qualifiers: Coronary Disease-Associated Artery/Lesion type: [place] artery [place] vs. transplanted heart: [place] heart Associated angina: without angina Qualified Code(s): I25.10 - Atherosclerotic heart disease of [place] coronary artery without angina pectoris (10) Diastolic CHF Priority: Secondary Status: Chronic Qualifiers: Heart failure chronicity: chronic Qualified Code(s): I50.32 - Chronic diastolic (congestive) heart failure Hospital course: Mr. Fernandez is a 72 year old male past medical history of CAD, atrial fibrillation, diastolic CHF was transferred due to elevated troponin. He was started on heparin drip for NSTEMI. Cardiology was consulted. His troponins remained flat. Echocardiogram showed moderate LVH and intermediate diastolic dysfunction and EF of 60-65%. No further intervention was recommended by cardiology. MRI was obtained given patient also had history of confusion and history of A. fib with INR being subtherapeutic on admission. There was a lacunar left-sided thalamic infarct. Neurology consult was obtained. Carotid ultrasound showed nonstenotic plaques. Unclear reason for confusion on admission. Physical therapy recommended home health and will also need speech therapy for short-term. Patient would be discharged on atorvastatin and lisinopril on top of his home medication. Patient's mentation back to baseline. Patient would need to follow with PCP for INR monitoring and ENT follow-up for possible chronic mastoiditis on left. Discharge discussed with: patient, family, nurse - Time Spent with Patient Total time spent providing and/or coordinating discharge services: Greater than 30 minutes (42) - Discharge Medications Prescriptions: New Atorvastatin [Lipitor] 40 mg PO HS 30 Days #30 tablet Lisinopril [Zestril] 5 mg PO DAILY 30 Days #30 tablet Continue Carvedilol [Coreg] 12.5 mg PO BIDWM metFORMIN [Glucophage] 1,000 mg PO BIDWM Glimepiride [Amaryl] 1 mg PO BIDWM Escitalopram [Lexapro] 20 mg PO DAILY Aspirin [Adult Aspirin] 81 mg PO DAILY Warfarin [Coumadin] 8 mg PO DAILY@1800 Home Medications: Aspirin [Adult Aspirin] 81 mg PO DAILY 04/08/18 [History] Carvedilol [Coreg] 12.5 mg PO BIDWM 04/08/18 [History] Escitalopram [Lexapro] 20 mg PO DAILY 04/08/18 [History] Glimepiride [Amaryl] 1 mg PO BIDWM 04/08/18 [History] Warfarin [Coumadin] 8 mg PO DAILY@1800 04/08/18 [History] metFORMIN [Glucophage] 1,000 mg PO BIDWM 04/08/18 [History] Atorvastatin [Lipitor] 40 mg PO HS 30 Days #30 tablet 04/10/18 [Rx] Lisinopril [Zestril] 5 mg PO DAILY 30 Days #30 tablet 04/10/18 [Rx] Allergies/Adverse Reactions: Allergy/AdvReac Type Severity Reaction Status Date / Time bee venom protein (honey bee) Allergy Anaphylaxis Verified 04/08/18 13:18 Date of admission: 04/08/18 11:55 Primary care physician: Bebe Hansen Consults: 04/08/18 13:30 Consult to Cardiology [CONS] Routine Comment: Consulting Provider: Cardiology [facility] Reason for Consult: NSTEMI Call Completed: Yes 04/08/18 21:58 Consult to Neurology [CONS] Routine Consulting Provider: [facility] Reason for Consult: Ongoing confusion for several weeks, CT negative for stroke, but MRI indicates acute lacunar infarct within the left thalamus. No focal neurologic findings on exam. Call Completed: No 04/09/18 09:35 Consult to Physical Therapy [CONS] Routine Comment: Evaluate, develop and implement POC Reason for Consult: dispostion Does patient have active BEDREST order?: No Is patient medically & hemodynamically stable?: Yes Patient assessed for mobility or mobilized this visit?: Yes 04/09/18 13:46 Consult to Speech Therapy [CONS] Routine Comment: Evaluate, develop and implement POC Reason for Consult: cognition (stroke) Call Completed: Yes Discharging clinician: Maria Guadalupe Zambrano - Constitutional Vitals: Temp Pulse Resp BP Pulse Ox 98.2 F 73 20 122/81 93 04/10/18 10:10 04/10/18 10:10 04/10/18 10:10 04/10/18 10:10 04/10/18 10:10 Exam: Constitutional: Vitals as noted. Conversant. No Apparent Distress. ENT : decreased hearing on Lt. Respiratory : Clear to auscultation bilaterally. No accessory muscle use, rales, rhonchi or wheezes Cardiovascular : RRR, +S1, +S2. no murmur, gallop, rubs. No chest wall tenderness GI/Abdominal : Obese, Soft, Non-tender. Musculoskeletal: no deformity noted. 1+ b/l edema, pulses palpable and symmetrical in UE/LE. no calf tenderness. Neurological: AO X2, CN II-XII grossly intact, grossly normal motor and sensory exam. Left sided facial scar. - Patient Status Disposition: Home Health Service Condition: Fair - Discharge Instructions Follow Up With: Bebe Hansen [Primary Care Provider] - 04/14/18 8:30 am (Please follow up as schedule...) - Diet and Activity Activity: as per physical therapy Diet: diabetic diet, low salt diet
[2018-04-10] MEDS: Aspirin Enteric Coated 81 MG Tablet PO SCH (10:58)
--- NOTE | 2018-04-10 11:13 | Physician Discharge Referral ---
Home Health/Hosp Referral Info Transfer to: Home Health - Diagnosis (1) Elevated troponin I level Status: Acute (2) Confusion Status: Acute (3) Diabetes type 2, controlled Status: Acute (4) Afib Status: Acute (5) DVT prophylaxis Status: Acute (6) HTN (hypertension) Status: Acute (7) Depression Status: Acute (8) Hypertensive emergency Status: Acute (9) CAD (coronary artery disease) Status: Acute (10) Diastolic CHF Status: Chronic - Respiratory Orders Smoking Cessation: Smoking cessation has been advised. For more information, call the [place] Tobacco Quit Line at 0-132-[place]. - Services Needed Following services are medically necessary services: Physical Therapy, Occupational Therapy, Speech Therapy - Transfer Medications Prescriptions: Atorvastatin [Lipitor] 40 mg PO HS 30 Days #30 tablet Lisinopril [Zestril] 5 mg PO DAILY 30 Days #30 tablet Home Medications: Aspirin [Adult Aspirin] 81 mg PO DAILY 04/08/18 [History] Carvedilol [Coreg] 12.5 mg PO BIDWM 04/08/18 [History] Escitalopram [Lexapro] 20 mg PO DAILY 04/08/18 [History] Glimepiride [Amaryl] 1 mg PO BIDWM 04/08/18 [History] Warfarin [Coumadin] 8 mg PO DAILY@1800 04/08/18 [History] metFORMIN [Glucophage] 1,000 mg PO BIDWM 04/08/18 [History] Atorvastatin [Lipitor] 40 mg PO HS 30 Days #30 tablet 04/10/18 [Rx] Lisinopril [Zestril] 5 mg PO DAILY 30 Days #30 tablet 04/10/18 [Rx] Allergies/Adverse Reactions: Allergy/AdvReac Type Severity Reaction Status Date / Time bee venom protein (honey bee) Allergy Anaphylaxis Verified 04/08/18 13:18 Certification: Further, I certify that my clinical findings support that this patient is homebound (i.e. absences from home require considerable and taxing effort and are for medical reasons or confucianist services or infrequently or short duration when for other reasons) because: Homebound Reason: Patient requires assistance of a person or device to safely leave home Attestation: My signature below is to certify that this patient is under my care and that I, or nurse practitioner, or a physician's printing assistant working with me, has a f astrid-to-face encounter with this patient.
--- NOTE | 2018-04-10 11:51 | Neurology Progress Note ---
Date of Encounter: 04/10/18 Time of Encounter: 11:48 Assessment and Plan (1) CVA (cerebral vascular accident) Current Visit: Yes Status: Acute Left thalamus infarct, with subtherapeutic INR from coumadin. Stroke work up completed and showed no additional pathology to change current regimen. Carotid artery duplex study is unremarkable. Agree with current treatment regimen. Okay to be discharged home. Qualifiers: Laterality of affected vessel: unspecified Qualified Code(s): I63.019 - Cerebral infarction due to thrombosis of unspecified vertebral artery Subjective Principal diagnosis: CVA Interval history: Patient seen and examined. He is feeling well and is ready to go home. Neurological status much improved. Objective - Constitutional Vitals: Temp Pulse Resp BP Pulse Ox 98.2 F 73 20 122/81 93 04/10/18 10:10 04/10/18 10:10 04/10/18 10:10 04/10/18 10:10 04/10/18 10:10 - Neurological Exam Sensorimotor examination: Present: intact Motor Examination: Present: grossly full strength in all extremities Motor examination - right side: 5/5: deltoids, biceps, triceps, wrist flexion, wrist extension, cylinder grinder, hip flexors, tibialis Anterior, quadriceps, toe extension (EHL), plantarflexion Motor examination - left side: 5/5: deltoids, biceps, triceps, wrist flexion, wrist extension, hip flexors, cylinder grinder, quadriceps, tibialis Anterior, toe extension (EHL), plantarflexion Sensation intact: Present: intact Posture: Present: other (None) Reflexes: Biceps: 1+, Triceps: 1+, Brachioradialis: 1+, Patella: 1+, Achilles: 1+ Mental Status Examination: Present: awake, alert, oriented to person, oriented to place, oriented to time, follows commands appropriately, answers questions appropriately, no agnosia, no aphasia, no aproxia, lucid Cranial nerve examination: Present: PERRL, EOMI, visual huston intact, corneal reflexes brisk symmetrically, sensory to face intact, mastication intact, no fac ial asymmetry is present, no dysarthria, hearing is intact symmetrically, soft palate elevates bilaterally upon phonation, gag reflex intact, flexes SCM and trapezius muscles symmetrically with full power, tongue protrudes midline Results - Laboratory Findings CBC and BMP: 04/09/18 04:14 04/09/18 04:14 Abnormal lab findings: Abnormal lab results PT 15.5 Seconds (9.4-12.1) H 04/08/18 13:13 Glucose 161 mg/dL (70-105) H 04/09/18 04:14 POC Glucose 175 mg/dL (70-99) H 04/09/18 16:39 Hemoglobin A1c 7.8 % (-5.6) H 04/09/18 04:14 AST 12 Units/L (13-39) L 04/09/18 04:14 Troponin I 0.06 ng/mL (< 0.04) H* 04/09/18 04:14 Serum Total Protein 6.3 g/dL (6.4-8.9) L 04/09/18 04:14 Albumin 3.4 g/dL (3.5-5.7) L 04/09/18 04:14 Consult Discharge Plan - Plan Referrals: Bebe Hansen [Primary Care Provider] - 04/14/18 8:30 am (Please follow up as schedule...) Prescriptions: Atorvastatin [Lipitor] 40 mg PO HS 30 Days #30 tablet Lisinopril [Zestril] 5 mg PO DAILY 30 Days #30 tablet
== END 2018-04-10 14:10 | disposition home health service (06) ==
LOC: SUATTDRO 11:55 → 2ANU 11:55 → INTOOBSV 11:55
PROVIDERS: ADMIT Internal Medicine; ATTEND Internal Medicine

== ENCOUNTER 2020-10-24 18:01 | Inpatient (IN) ==
[2020-10-24] MEDS ORDERED: Ondansetron 4 MG/2 ML VIAL IVP PRN (22:11)
[2020-10-24] MEDS ORDERED: Naloxone 0.4 MG/ML INJ IVP PRN (22:11)
[2020-10-24] MEDS ORDERED: Ipratropium 1 PUFF INHALER IH PRN (22:18)
[2020-10-24 23:25] LABS: Troponin I 0.1 ng/mL (< 0.04)
[2020-10-25] MEDS ORDERED: *HR* Dextrose 50 % in Water (Vial) 50 ML VIAL IVP PRN (03:46)
[2020-10-25] MEDS ORDERED: Dextrose Gel 15 GM/37.5 ML TUBE PO PRN ×2 (03:46)
[2020-10-25] MEDS ORDERED: D5% in Water 1,000 ML IVC PRN (03:46)
[2020-10-25] MEDS: Insulin LISPRO 300 UNITS/3 ML VIAL SUBQ SCH ×3 (05:20→17:49)
[2020-10-25 05:58] LABS: Basophils % 0.5 %; Eosinophils % 0.5 %; Hematocrit 38.8 % (37.5-50.1); Hemoglobin 12.6 g/dL (12.9-16.9); Immature Granulocytes % 0.3 % (0-4); Lymphocytes # 0.7 K/mcL (0.6-4.6); Lymphocytes % 11.5 %; Mean Corpuscular HGB Conc 32.5 g/dL (31.6-35.5); Mean Corpuscular Hemoglobin 29.6 pg (28.0-33.3); Mean Corpuscular Volume 91.3 fL (83.0-100.0); Mean Platelet Volume 10.7 fL (9.4-12.4); Monocytes % 15.8 %; Neutrophils # 4.5 K/mcL (1.6-8.9); Platelet Count 192 K/mcL (140-400); Red Blood Count 4.25 M/mcL (4.19-5.50); Red Cell Distribution Width 13.6 % (11.5-14.5); Segmented Neutrophils % 71.4 %; White Blood Count 6.3 K/mcL (4.3-11.1)
[2020-10-25] MEDS ORDERED: *HR* Enoxaparin 40 MG/0.4 ML SYRINGE SQ SCH (06:00)
[2020-10-25 06:09] LABS: INR 2.7; Prothrombin Time 30.3 Seconds (9.4-12.1)
[2020-10-25 06:10] LABS: Activated Partial Thrombo Time 39.3 Seconds (26.0-36.0)
[2020-10-25 06:11] LABS: Alanine Aminotransferase 9 Units/L (7-52); Albumin 3.9 g/dL (3.5-5.7); Albumin/Globulin Ratio 1.4 (1.1-2.2); Alkaline Phosphatase 67 Units/L (34-104); Aspartate Amino Transferase 18 Units/L (13-39); Carbon Dioxide 23 mEq/L (23-29); Chloride 103 mEq/L (98-107); Globulin 2.7 g/dL (2.4-3.5); Glucose 91 mg/dL (70-105); Lactate Dehydrogenase 172 Units/L (140-271); Potassium 3.8 mEq/L (3.5-5.1); Sodium 136 mEq/L (136-145); Total Protein 6.6 g/dL (6.4-8.9); eGFR For African Americans > 60 (> 60); eGFR For Non-African Americans > 60 (> 60)
[2020-10-25 06:26] LABS: Ferritin 183 ng/mL (20-250)
[2020-10-25 06:29] LABS: BUN/Creatinine Ratio 20 (6-26); Blood Urea Nitrogen 18 mg/dL (8-23); Calcium 8.8 mg/dL (8.6-10.3); Osmolality,Calculated 283 (280-300)
[2020-10-25] MEDS ORDERED: Aspirin 325 MG TABLET PO ONE (06:32)
[2020-10-25] MEDS ORDERED: Perflutren Lipid Microsphere 1.3 ML in 0.9 % Sodium Chloride 8.7 ML IVP PRN (06:36)
[2020-10-25] MEDS: Pantoprazole 40 MG VIAL IVP SCH (08:43)
[2020-10-25 10:55] LABS: Bilirubin,Urine Negative (Negative); Blood,Urine Small (Negative); Clarity,Urine Turbid (Clear); Color,Urine Light-Yellow (Yellow); Glucose,Urine (UA) Normal (Normal); Ketones,Urine Trace mg/dL (Negative); Leukocyte Esterase,Urine Negative (Negative); Mucus,Urine Few per lpf (None-Few); Nitrite,Urine Negative (Negative); PH,Urine 5.5 pH Units (5.0-8.0); Protein,Urine Trace mg/dL (Neg-Trace); Specific Gravity,Urine 1.023 (1.010-1.025); Squamous Epithelial Cell,Urine Few per hpf (None-Few); Urobilinogen,Urine Normal (Normal)
[2020-10-25 11:26] LABS: Estimated Average Glucose 143 mg/dl; Hemoglobin A1C 6.6 %
[2020-10-25] MEDS ORDERED: *HR* Warfarin 3 MG TABLET PO ONE ×2 (17:45→18:00)
[2020-10-25] MEDS ORDERED: Warfarin perPT PO PRN (18:00)
[2020-10-25] MEDS: Melatonin 3 MG TABLET PO PRN (20:00)
[2020-10-25] MEDS ORDERED: *HR* Metoprolol 5 MG/5 ML VIAL IVP ONE (20:47)
[2020-10-26] MEDS: Insulin LISPRO 300 UNITS/3 ML VIAL SUBQ SCH ×4 (01:43→16:46)
[2020-10-26 07:10] LABS: Hematocrit 42.2 % (37.5-50.1); Hemoglobin 13.4 g/dL (12.9-16.9); Immature Granulocytes % 0.5 % (0-4); Lymphocytes # 0.9 K/mcL (0.6-4.6); Lymphocytes % 13.8 %; Mean Corpuscular HGB Conc 31.8 g/dL (31.6-35.5); Mean Corpuscular Hemoglobin 29.6 pg (28.0-33.3); Mean Corpuscular Volume 93.4 fL (83.0-100.0); Mean Platelet Volume 10.7 fL (9.4-12.4); Monocytes # 0.8 K/mcL (0.0-1.3); Monocytes % 11.7 %; Neutrophils # 4.8 K/mcL (1.6-8.9); Platelet Count 192 K/mcL (140-400); Red Blood Count 4.52 M/mcL (4.19-5.50); Red Cell Distribution Width 13.4 % (11.5-14.5); White Blood Count 6.5 K/mcL (4.3-11.1)
[2020-10-26 07:23] LABS: INR 2.2; Prothrombin Time 25.4 Seconds (9.4-12.1)
[2020-10-26 07:39] LABS: Alanine Aminotransferase 12 Units/L (7-52); Albumin 3.8 g/dL (3.5-5.7); Albumin/Globulin Ratio 1.3 (1.1-2.2); Alkaline Phosphatase 66 Units/L (34-104); Aspartate Amino Transferase 39 Units/L (13-39); BUN/Creatinine Ratio 21 (6-26); Bilirubin,Total 0.8 mg/dL (0.3-1.0); Blood Urea Nitrogen 18 mg/dL (8-23); Calcium 8.7 mg/dL (8.6-10.3); Carbon Dioxide 28 mEq/L (23-29); Chloride 102 mEq/L (98-107); Glucose 134 mg/dL (70-105); Osmolality,Calculated 288 (280-300); Sodium 137 mEq/L (136-145); Total Protein 6.8 g/dL (6.4-8.9); eGFR For African Americans > 60 (> 60); eGFR For Non-African Americans > 60 (> 60)
[2020-10-26] MEDS: Pantoprazole 40 MG VIAL IVP SCH (08:41)
[2020-10-26] MEDS: carvediloL 6.25 MG TABLET PO SCH (16:45)
[2020-10-26] MEDS ORDERED: *HR* Warfarin 5 MG TABLET PO ONE (18:00)
[2020-10-27] MEDS: Insulin LISPRO 300 UNITS/3 ML VIAL SUBQ SCH ×4 (00:40→16:57)
[2020-10-27 03:06] LABS: Hematocrit 41.2 % (37.5-50.1); Hemoglobin 12.9 g/dL (12.9-16.9); Immature Granulocytes % 0.6 % (0-4); Lymphocytes # 0.9 K/mcL (0.6-4.6); Lymphocytes % 10.6 %; Mean Corpuscular HGB Conc 31.3 g/dL (31.6-35.5); Mean Corpuscular Hemoglobin 28.9 pg (28.0-33.3); Mean Corpuscular Volume 92.2 fL (83.0-100.0); Mean Platelet Volume 10.8 fL (9.4-12.4); Monocytes # 0.7 K/mcL (0.0-1.3); Monocytes % 7.8 %; Neutrophils # 6.9 K/mcL (1.6-8.9); Platelet Count 176 K/mcL (140-400); Red Blood Count 4.47 M/mcL (4.19-5.50); Red Cell Distribution Width 13.3 % (11.5-14.5); White Blood Count 8.6 K/mcL (4.3-11.1)
[2020-10-27 03:14] LABS: INR 2.7; Prothrombin Time 30.5 Seconds (9.4-12.1)
[2020-10-27 03:27] LABS: Alanine Aminotransferase 13 Units/L (7-52); Albumin 3.7 g/dL (3.5-5.7); Albumin/Globulin Ratio 1.3 (1.1-2.2); Alkaline Phosphatase 60 Units/L (34-104); Aspartate Amino Transferase 32 Units/L (13-39); BUN/Creatinine Ratio 23 (6-26); Bilirubin,Total 0.7 mg/dL (0.3-1.0); Blood Urea Nitrogen 21 mg/dL (8-23); Calcium 8.7 mg/dL (8.6-10.3); Carbon Dioxide 28 mEq/L (23-29); Chloride 101 mEq/L (98-107); Globulin 2.9 g/dL (2.4-3.5); Glucose 151 mg/dL (70-105); Osmolality,Calculated 290 (280-300); Sodium 137 mEq/L (136-145); Total Protein 6.6 g/dL (6.4-8.9); eGFR For African Americans > 60 (> 60); eGFR For Non-African Americans > 60 (> 60)
[2020-10-27] MEDS: carvediloL 6.25 MG TABLET PO SCH ×2 (08:35→15:27)
[2020-10-27] MEDS: Aspirin Enteric Coated 81 MG Tablet PO SCH (08:35)
[2020-10-27] MEDS: Pantoprazole 40 MG VIAL IVP SCH (08:36)
[2020-10-27] MEDS: lisinopriL 10 MG TABLET PO SCH (08:36)
[2020-10-27 10:48] LABS: Fibrinogen 459 mg/dL (169-393)
[2020-10-27 10:49] LABS: Lactate Dehydrogenase 234 Units/L (140-271)
[2020-10-27 10:56] LABS: D-Dimer 284 ng/mLFEU (0-500)
[2020-10-27 11:07] LABS: Ferritin 340 ng/mL (20-250)
[2020-10-27 11:37] LABS: C-Reactive Protein 16 mg/L (Less than 10)
[2020-10-27] MEDS: Furosemide 20 MG/2 ML VIAL IVP SCH (15:29)
[2020-10-27] MEDS ORDERED: *HR* Warfarin 5 MG TABLET PO ONE (18:00)
[2020-10-27] MEDS: Melatonin 3 MG TABLET PO PRN (19:27)
[2020-10-28] MEDS: Insulin LISPRO 300 UNITS/3 ML VIAL SUBQ SCH ×4 (00:27→17:45)
[2020-10-28 03:44] LABS: Hematocrit 41.6 % (37.5-50.1); Hemoglobin 13.2 g/dL (12.9-16.9); Immature Granulocytes % 0.2 % (0-4); Lymphocytes # 0.7 K/mcL (0.6-4.6); Lymphocytes % 7.6 %; Mean Corpuscular HGB Conc 31.7 g/dL (31.6-35.5); Mean Corpuscular Hemoglobin 29.1 pg (28.0-33.3); Mean Corpuscular Volume 91.8 fL (83.0-100.0); Mean Platelet Volume 10.7 fL (9.4-12.4); Monocytes # 0.7 K/mcL (0.0-1.3); Monocytes % 6.9 %; Neutrophils # 8.1 K/mcL (1.6-8.9); Platelet Count 185 K/mcL (140-400); Red Blood Count 4.53 M/mcL (4.19-5.50); Red Cell Distribution Width 13.2 % (11.5-14.5); Segmented Neutrophils % 85.3 %; White Blood Count 9.5 K/mcL (4.3-11.1)
[2020-10-28 03:48] LABS: INR 3.3
[2020-10-28 04:04] LABS: Alanine Aminotransferase 12 Units/L (7-52); Albumin 3.7 g/dL (3.5-5.7); Albumin/Globulin Ratio 1.3 (1.1-2.2); Alkaline Phosphatase 60 Units/L (34-104); Aspartate Amino Transferase 23 Units/L (13-39); BUN/Creatinine Ratio 23 (6-26); Bilirubin,Total 0.9 mg/dL (0.3-1.0); Blood Urea Nitrogen 24 mg/dL (8-23); Carbon Dioxide 30 mEq/L (23-29); Chloride 98 mEq/L (98-107); Globulin 2.9 g/dL (2.4-3.5); Glucose 146 mg/dL (70-105); Osmolality,Calculated 289 (280-300); Potassium 3.8 mEq/L (3.5-5.1); Sodium 136 mEq/L (136-145); Total Protein 6.6 g/dL (6.4-8.9); eGFR For African Americans > 60 (> 60); eGFR For Non-African Americans > 60 (> 60)
[2020-10-28] MEDS: Pantoprazole 40 MG VIAL IVP SCH (08:39)
[2020-10-28] MEDS: Furosemide 20 MG/2 ML VIAL IVP SCH (08:39)
[2020-10-28] MEDS: Aspirin Enteric Coated 81 MG Tablet PO SCH (08:40)
[2020-10-28] MEDS: lisinopriL 10 MG TABLET PO SCH (08:40)
[2020-10-28] MEDS: carvediloL 6.25 MG TABLET PO SCH ×2 (08:40→17:44)
[2020-10-28] MEDS: Melatonin 3 MG TABLET PO PRN (19:39)
[2020-10-29] MEDS: Insulin LISPRO 300 UNITS/3 ML VIAL SUBQ SCH ×4 (00:18→17:51)
[2020-10-29 03:06] LABS: Basophils % 0.1 %; Hematocrit 43.2 % (37.5-50.1); Immature Granulocytes % 0.3 % (0-4); Lymphocytes # 0.5 K/mcL (0.6-4.6); Lymphocytes % 6.6 %; Mean Corpuscular HGB Conc 32.4 g/dL (31.6-35.5); Mean Corpuscular Hemoglobin 29.5 pg (28.0-33.3); Mean Corpuscular Volume 91.1 fL (83.0-100.0); Mean Platelet Volume 10.6 fL (9.4-12.4); Monocytes # 0.7 K/mcL (0.0-1.3); Monocytes % 10.8 %; Neutrophils # 5.6 K/mcL (1.6-8.9); Platelet Count 183 K/mcL (140-400); Red Blood Count 4.74 M/mcL (4.19-5.50); Red Cell Distribution Width 13.2 % (11.5-14.5); Segmented Neutrophils % 82.2 %; White Blood Count 6.8 K/mcL (4.3-11.1)
[2020-10-29 03:14] LABS: INR 2.7; Prothrombin Time 30.9 Seconds (9.4-12.1)
[2020-10-29 03:20] LABS: Alanine Aminotransferase 15 Units/L (7-52); Albumin/Globulin Ratio 1.2 (1.1-2.2); Alkaline Phosphatase 63 Units/L (34-104); Aspartate Amino Transferase 54 Units/L (13-39); BUN/Creatinine Ratio 22 (6-26); Bilirubin,Total 1.5 mg/dL (0.3-1.0); Blood Urea Nitrogen 24 mg/dL (8-23); Calcium 9.2 mg/dL (8.6-10.3); Carbon Dioxide 30 mEq/L (23-29); Chloride 95 mEq/L (98-107); Globulin 3.3 g/dL (2.4-3.5); Glucose 144 mg/dL (70-105); Osmolality,Calculated 285 (280-300); Potassium 3.9 mEq/L (3.5-5.1); Sodium 134 mEq/L (136-145); Total Protein 7.3 g/dL (6.4-8.9); eGFR For African Americans > 60 (> 60); eGFR For Non-African Americans > 60 (> 60)
[2020-10-29] MEDS: Aspirin Enteric Coated 81 MG Tablet PO SCH (08:13)
[2020-10-29] MEDS: Pantoprazole 40 MG VIAL IVP SCH (08:14)
[2020-10-29] MEDS: Furosemide 20 MG/2 ML VIAL IVP SCH (08:14)
[2020-10-29] MEDS: lisinopriL 10 MG TABLET PO SCH (08:14)
[2020-10-29] MEDS: carvediloL 6.25 MG TABLET PO SCH ×3 (08:14→17:59)
[2020-10-29] MEDS ORDERED: *HR* Warfarin 5 MG TABLET PO ONE (18:00)
[2020-10-30] MEDS ORDERED: *HR* Metoprolol 5 MG/5 ML VIAL IVP ONE (04:07)
[2020-10-30 06:26] LABS: Hematocrit 44.3 % (37.5-50.1); Hemoglobin 14.5 g/dL (12.9-16.9); Immature Granulocytes % 0.5 % (0-4); Lymphocytes # 0.5 K/mcL (0.6-4.6); Lymphocytes % 6.4 %; Mean Corpuscular HGB Conc 32.7 g/dL (31.6-35.5); Mean Corpuscular Hemoglobin 29.2 pg (28.0-33.3); Mean Corpuscular Volume 89.1 fL (83.0-100.0); Mean Platelet Volume 11.2 fL (9.4-12.4); Monocytes # 0.6 K/mcL (0.0-1.3); Monocytes % 7.4 %; Neutrophils # 6.7 K/mcL (1.6-8.9); Platelet Count 171 K/mcL (140-400); Red Blood Count 4.97 M/mcL (4.19-5.50); Red Cell Distribution Width 13.2 % (11.5-14.5); Segmented Neutrophils % 85.7 %; White Blood Count 7.9 K/mcL (4.3-11.1)
[2020-10-30] MEDS: Insulin LISPRO 300 UNITS/3 ML VIAL SUBQ SCH ×5 (06:26→17:45)
[2020-10-30 06:33] LABS: INR 2.3; Prothrombin Time 26.4 Seconds (9.4-12.1)
[2020-10-30 06:39] LABS: Alanine Aminotransferase 17 Units/L (7-52); Albumin 3.8 g/dL (3.5-5.7); Albumin/Globulin Ratio 1.2 (1.1-2.2); Alkaline Phosphatase 61 Units/L (34-104); Aspartate Amino Transferase 51 Units/L (13-39); BUN/Creatinine Ratio 28 (6-26); Bilirubin,Total 1.7 mg/dL (0.3-1.0); Blood Urea Nitrogen 30 mg/dL (8-23); Calcium 9.1 mg/dL (8.6-10.3); Carbon Dioxide 29 mEq/L (23-29); Chloride 92 mEq/L (98-107); Globulin 3.3 g/dL (2.4-3.5); Glucose 174 mg/dL (70-105); Osmolality,Calculated 284 (280-300); Potassium 3.6 mEq/L (3.5-5.1); Sodium 132 mEq/L (136-145); Total Protein 7.1 g/dL (6.4-8.9); eGFR For African Americans > 60 (> 60); eGFR For Non-African Americans > 60 (> 60)
[2020-10-30] MEDS: carvediloL 6.25 MG TABLET PO SCH ×2 (08:18→17:05)
[2020-10-30] MEDS: lisinopriL 10 MG TABLET PO SCH (08:18)
[2020-10-30] MEDS: Aspirin Enteric Coated 81 MG Tablet PO SCH (08:18)
[2020-10-30] MEDS: Furosemide 20 MG/2 ML VIAL IVP SCH (08:18)
[2020-10-30] MEDS: Pantoprazole 40 MG VIAL IVP SCH (08:18)
[2020-10-30] MEDS ORDERED: *HR* Warfarin 5 MG TABLET PO ONE (18:00)
[2020-10-30] MEDS: Ipratropium 1 PUFF INHALER IH SCH ×2 (19:31→20:17)
[2020-10-31] MEDS: Ipratropium 1 PUFF INHALER IH SCH ×4 (00:02→20:10)
[2020-10-31 05:42] LABS: Basophils % 0.1 %; Hematocrit 44.3 % (37.5-50.1); Hemoglobin 14.8 g/dL (12.9-16.9); Immature Granulocytes % 0.3 % (0-4); Lymphocytes # 0.6 K/mcL (0.6-4.6); Lymphocytes % 5.7 %; Mean Corpuscular HGB Conc 33.4 g/dL (31.6-35.5); Mean Corpuscular Hemoglobin 29.8 pg (28.0-33.3); Mean Corpuscular Volume 89.3 fL (83.0-100.0); Mean Platelet Volume 11.9 fL (9.4-12.4); Monocytes # 0.6 K/mcL (0.0-1.3); Monocytes % 6.1 %; Neutrophils # 8.5 K/mcL (1.6-8.9); Platelet Count 198 K/mcL (140-400); Red Blood Count 4.96 M/mcL (4.19-5.50); Red Cell Distribution Width 13.2 % (11.5-14.5); Segmented Neutrophils % 87.8 %; White Blood Count 9.7 K/mcL (4.3-11.1)
[2020-10-31 05:48] LABS: INR 2.3; Prothrombin Time 25.5 Seconds (9.4-12.1)
[2020-10-31 05:58] LABS: Albumin 3.7 g/dL (3.5-5.7); Bilirubin,Total 1.7 mg/dL (0.3-1.0); Calcium 8.9 mg/dL (8.6-10.3); Globulin 3.7 g/dL (2.4-3.5); Potassium 3.6 mEq/L (3.5-5.1); Total Protein 7.4 g/dL (6.4-8.9)
[2020-10-31] MEDS: Insulin LISPRO 300 UNITS/3 ML VIAL SUBQ SCH ×5 (06:04→23:08)
[2020-10-31] MEDS: Aspirin Enteric Coated 81 MG Tablet PO SCH (08:27)
[2020-10-31] MEDS: carvediloL 6.25 MG TABLET PO SCH ×2 (08:27→17:37)
[2020-10-31] MEDS: lisinopriL 10 MG TABLET PO SCH (08:27)
[2020-10-31] MEDS: Furosemide 20 MG/2 ML VIAL IVP SCH (08:28)
[2020-10-31] MEDS: Pantoprazole 40 MG VIAL IVP SCH (08:35)
[2020-10-31] MEDS ORDERED: 0.9 % Sodium Chloride 1,000 ML IVC SCH (09:30)
[2020-10-31] MEDS ORDERED: *HR* Warfarin 5 MG TABLET PO ONE (18:00)
[2020-10-31 18:52] LABS: ABG Base Excess 6 mEq/L (-2 to 3); ABG HCO3 31 mEq/L (21-27); ABG Oxygen Saturation 93 % (95-98); ABG PCO2 43 mmHg (35-45); ABG PH 7.46 pH Units (7.32-7.45); ABG PO2 65 mmHg (85-104); ABG TCO2 32 mEq/L (20-26)
[2020-11-01 02:15] LABS: Hematocrit 46.2 % (37.5-50.1); Mean Corpuscular HGB Conc 32.5 g/dL (31.6-35.5); Mean Corpuscular Hemoglobin 29.4 pg (28.0-33.3); Mean Corpuscular Volume 90.4 fL (83.0-100.0); Mean Platelet Volume 11.3 fL (9.4-12.4); Platelet Count 165 K/mcL (140-400); Red Blood Count 5.11 M/mcL (4.19-5.50); Red Cell Distribution Width 13.2 % (11.5-14.5); White Blood Count 10.8 K/mcL (4.3-11.1)
[2020-11-01 02:22] LABS: INR 2.6; Prothrombin Time 29.3 Seconds (9.4-12.1)
[2020-11-01 02:59] LABS: Blood Urea Nitrogen 47 mg/dL (8-23); Carbon Dioxide 24 mEq/L (23-29); Chloride 93 mEq/L (98-107); Glucose 231 mg/dL (70-105); Osmolality,Calculated 292 (280-300); Potassium 4.1 mEq/L (3.5-5.1); Sodium 131 mEq/L (136-145)
[2020-11-01 03:00] LABS: BUN/Creatinine Ratio 37 (6-26); Calcium 8.8 mg/dL (8.6-10.3); eGFR For African Americans > 60 (> 60); eGFR For Non-African Americans 56 (> 60)
[2020-11-01] MEDS: Ipratropium 1 PUFF INHALER IH SCH ×4 (03:58→19:59)
[2020-11-01] MEDS: Insulin LISPRO 300 UNITS/3 ML VIAL SUBQ SCH ×3 (06:11→17:16)
[2020-11-01] MEDS ORDERED: dexAMETHasone 4 MG TABLET PO SCH (09:00)
[2020-11-01] MEDS: Pantoprazole 40 MG VIAL IVP SCH (10:00)
[2020-11-01] MEDS: lisinopriL 10 MG TABLET PO SCH (10:02)
[2020-11-01] MEDS: carvediloL 6.25 MG TABLET PO SCH ×2 (10:02→17:16)
[2020-11-01] MEDS: Aspirin Enteric Coated 81 MG Tablet PO SCH (10:02)
[2020-11-01] MEDS ORDERED: *HR* Warfarin 5 MG TABLET PO ONE (18:00)
[2020-11-01] MEDS: Piperacillin/Tazobactam 3.375 GM in 0.9 % Sodium Chloride Mini Bag 100 ML IVPB SCH (18:17)
[2020-11-02] MEDS: Insulin LISPRO 300 UNITS/3 ML VIAL SUBQ SCH ×4 (01:00→17:47)
[2020-11-02] MEDS: Piperacillin/Tazobactam 3.375 GM in 0.9 % Sodium Chloride Mini Bag 100 ML IVPB SCH ×3 (01:06→17:45)
[2020-11-02 02:27] LABS: Basophils % 0.1 %; Hematocrit 45.2 % (37.5-50.1); Hemoglobin 14.5 g/dL (12.9-16.9); Immature Granulocytes % 0.8 % (0-4); Lymphocytes # 0.4 K/mcL (0.6-4.6); Lymphocytes % 3.7 %; Mean Corpuscular HGB Conc 32.1 g/dL (31.6-35.5); Mean Corpuscular Hemoglobin 28.7 pg (28.0-33.3); Mean Corpuscular Volume 89.5 fL (83.0-100.0); Mean Platelet Volume 11.4 fL (9.4-12.4); Monocytes # 0.7 K/mcL (0.0-1.3); Monocytes % 6.3 %; Neutrophils # 9.7 K/mcL (1.6-8.9); Platelet Count 169 K/mcL (140-400); Red Blood Count 5.05 M/mcL (4.19-5.50); Red Cell Distribution Width 13.4 % (11.5-14.5); Segmented Neutrophils % 89.1 %; White Blood Count 10.9 K/mcL (4.3-11.1)
[2020-11-02 02:42] LABS: Albumin 3.4 g/dL (3.5-5.7); Albumin/Globulin Ratio 0.9 (1.1-2.2); Bilirubin,Total 1.2 mg/dL (0.3-1.0); Calcium 8.9 mg/dL (8.6-10.3); Globulin 3.6 g/dL (2.4-3.5); Potassium 3.9 mEq/L (3.5-5.1)
[2020-11-02 03:48] LABS: INR 3.4; Prothrombin Time 38.2 Seconds (9.4-12.1)
[2020-11-02] MEDS: Ipratropium 1 PUFF INHALER IH SCH ×4 (05:03→20:14)
[2020-11-02] MEDS ORDERED: 0.9 % Sodium Chloride 1,000 ML IVC SCH (07:30)
[2020-11-02] MEDS: lisinopriL 10 MG TABLET PO SCH (09:32)
[2020-11-02] MEDS: Aspirin Enteric Coated 81 MG Tablet PO SCH (09:32)
[2020-11-02] MEDS: carvediloL 6.25 MG TABLET PO SCH ×2 (09:32→17:45)
[2020-11-02] MEDS: Pantoprazole 40 MG VIAL IVP SCH (09:36)
[2020-11-02] MEDS ORDERED: Insulin DETEMIR 100 UNIT/ML X5UNITS SUBQ SCH (21:00)
[2020-11-03] MEDS: Insulin LISPRO 300 UNITS/3 ML VIAL SUBQ SCH ×5 (00:47→21:37)
[2020-11-03] MEDS: Piperacillin/Tazobactam 3.375 GM in 0.9 % Sodium Chloride Mini Bag 100 ML IVPB SCH ×3 (03:04→17:21)
[2020-11-03] MEDS: Ipratropium 1 PUFF INHALER IH SCH ×4 (03:31→19:57)
[2020-11-03] MEDS: Aspirin Enteric Coated 81 MG Tablet PO SCH (09:26)
[2020-11-03] MEDS: carvediloL 6.25 MG TABLET PO SCH ×2 (09:26→17:20)
[2020-11-03] MEDS: lisinopriL 10 MG TABLET PO SCH (09:26)
[2020-11-03] MEDS: Pantoprazole 40 MG VIAL IVP SCH (09:29)
[2020-11-03 11:30] LABS: Hematocrit 45.4 % (37.5-50.1); Hemoglobin 14.3 g/dL (12.9-16.9); Mean Corpuscular HGB Conc 31.5 g/dL (31.6-35.5); Mean Corpuscular Hemoglobin 28.3 pg (28.0-33.3); Mean Corpuscular Volume 89.7 fL (83.0-100.0); Mean Platelet Volume 11.5 fL (9.4-12.4); Platelet Count 195 K/mcL (140-400); Red Blood Count 5.06 M/mcL (4.19-5.50); Red Cell Distribution Width 13.3 % (11.5-14.5); White Blood Count 15.6 K/mcL (4.3-11.1)
[2020-11-03 11:46] LABS: Prothrombin Time 64.2 Seconds (9.4-12.1)
[2020-11-03 11:47] LABS: INR 5.8
[2020-11-03 11:51] LABS: BUN/Creatinine Ratio 37 (6-26); Blood Urea Nitrogen 40 mg/dL (8-23); C-Reactive Protein 271 mg/L (Less than 10); Carbon Dioxide 28 mEq/L (23-29); Chloride 102 mEq/L (98-107); Glucose 224 mg/dL (70-105); Osmolality,Calculated 307 (280-300); Sodium 140 mEq/L (136-145); eGFR For African Americans > 60 (> 60); eGFR For Non-African Americans > 60 (> 60)
[2020-11-03 12:09] LABS: Ferritin > 1500 ng/mL (20-250)
[2020-11-03] MEDS ORDERED: *HR* Phytonadione 10 MG/ML AMPUL SQ ONE (12:23)
[2020-11-03] MEDS: QUEtiapine Fumarate 25 MG TABLET PO SCH (21:35)
[2020-11-03] MEDS: Insulin DETEMIR 100 UNIT/ML X5UNITS SUBQ SCH (21:36)
[2020-11-04] MEDS: Piperacillin/Tazobactam 3.375 GM in 0.9 % Sodium Chloride Mini Bag 100 ML IVPB SCH ×3 (02:00→17:52)
[2020-11-04 02:51] LABS: Hematocrit 48.4 % (37.5-50.1); Hemoglobin 15.3 g/dL (12.9-16.9); Mean Corpuscular HGB Conc 31.6 g/dL (31.6-35.5); Mean Corpuscular Hemoglobin 28.7 pg (28.0-33.3); Mean Corpuscular Volume 90.8 fL (83.0-100.0); Mean Platelet Volume 11.5 fL (9.4-12.4); Platelet Count 206 K/mcL (140-400); Red Blood Count 5.33 M/mcL (4.19-5.50); Red Cell Distribution Width 13.3 % (11.5-14.5); White Blood Count 13.9 K/mcL (4.3-11.1)
[2020-11-04 02:55] LABS: BUN/Creatinine Ratio 35 (6-26); Blood Urea Nitrogen 37 mg/dL (8-23); Calcium 9.4 mg/dL (8.6-10.3); Carbon Dioxide 30 mEq/L (23-29); Chloride 101 mEq/L (98-107); Glucose 253 mg/dL (70-105); Osmolality,Calculated 307 (280-300); Potassium 3.9 mEq/L (3.5-5.1); Sodium 140 mEq/L (136-145); eGFR For African Americans > 60 (> 60); eGFR For Non-African Americans > 60 (> 60)
[2020-11-04 03:11] LABS: Prothrombin Time 56.7 Seconds (9.4-12.1)
[2020-11-04] MEDS: Ipratropium 1 PUFF INHALER IH SCH ×4 (04:39→19:58)
[2020-11-04 05:39] LABS: INR 5.2
[2020-11-04] MEDS: Insulin LISPRO 300 UNITS/3 ML VIAL SUBQ SCH ×4 (08:38→20:24)
[2020-11-04] MEDS: Pantoprazole 40 MG VIAL IVP SCH (11:17)
[2020-11-04] MEDS: carvediloL 6.25 MG TABLET PO SCH ×2 (11:17→17:14)
[2020-11-04] MEDS: Aspirin Enteric Coated 81 MG Tablet PO SCH (11:17)
[2020-11-04] MEDS: Dexamethasone Sodium Phos/PF 10 MG/ML VIAL IVP SCH (11:18)
[2020-11-04] MEDS: lisinopriL 10 MG TABLET PO SCH (11:18)
[2020-11-04] MEDS: QUEtiapine Fumarate 25 MG TABLET PO SCH (20:23)
[2020-11-04] MEDS: Insulin DETEMIR 100 UNIT/ML X5UNITS SUBQ SCH (20:24)
[2020-11-05] MEDS: Piperacillin/Tazobactam 3.375 GM in 0.9 % Sodium Chloride Mini Bag 100 ML IVPB SCH ×3 (01:28→17:42)
[2020-11-05 02:45] LABS: Hematocrit 52.6 % (37.5-50.1); Hemoglobin 16.2 g/dL (12.9-16.9); Mean Corpuscular HGB Conc 30.8 g/dL (31.6-35.5); Mean Corpuscular Hemoglobin 28.5 pg (28.0-33.3); Mean Corpuscular Volume 92.6 fL (83.0-100.0); Platelet Count 199 K/mcL (140-400); Red Blood Count 5.68 M/mcL (4.19-5.50); Red Cell Distribution Width 13.6 % (11.5-14.5); White Blood Count 9.7 K/mcL (4.3-11.1)
[2020-11-05 02:56] LABS: INR 3.2; Prothrombin Time 35.8 Seconds (9.4-12.1)
[2020-11-05] MEDS: Ipratropium 1 PUFF INHALER IH SCH ×4 (03:37→20:07)
[2020-11-05 05:44] LABS: BUN/Creatinine Ratio 36 (6-26); Blood Urea Nitrogen 36 mg/dL (8-23); C-Reactive Protein 235 mg/L (Less than 10); Calcium 9.3 mg/dL (8.6-10.3); Carbon Dioxide 30 mEq/L (23-29); Chloride 104 mEq/L (98-107); Glucose 267 mg/dL (70-105); Lactate Dehydrogenase 453 Units/L (140-271); Magnesium 2.2 mg/dL (1.6-2.6); Osmolality,Calculated 320 (280-300); Sodium 146 mEq/L (136-145); eGFR For African Americans > 60 (> 60); eGFR For Non-African Americans > 60 (> 60)
[2020-11-05 06:04] LABS: Ferritin > 1500 ng/mL (20-250)
[2020-11-05] MEDS: carvediloL 6.25 MG TABLET PO SCH ×2 (08:02→16:57)
[2020-11-05] MEDS: lisinopriL 10 MG TABLET PO SCH (08:03)
[2020-11-05] MEDS: Aspirin Enteric Coated 81 MG Tablet PO SCH (08:03)
[2020-11-05] MEDS: Pantoprazole 40 MG VIAL IVP SCH (08:32)
[2020-11-05] MEDS: Dexamethasone Sodium Phos/PF 10 MG/ML VIAL IVP SCH (08:32)
[2020-11-05] MEDS: Insulin LISPRO 300 UNITS/3 ML VIAL SUBQ SCH ×2 (11:37→17:41)
[2020-11-05] MEDS: QUEtiapine Fumarate 25 MG TABLET PO SCH (21:22)
[2020-11-05] MEDS: Insulin DETEMIR 100 UNIT/ML X5UNITS SUBQ SCH (21:24)
[2020-11-06] MEDS: Insulin LISPRO 300 UNITS/3 ML VIAL SUBQ SCH ×5 (00:12→20:53)
[2020-11-06] MEDS: Piperacillin/Tazobactam 3.375 GM in 0.9 % Sodium Chloride Mini Bag 100 ML IVPB SCH ×2 (02:30→12:09)
[2020-11-06 03:40] LABS: Hematocrit 51.2 % (37.5-50.1); Mean Corpuscular HGB Conc 31.3 g/dL (31.6-35.5); Mean Corpuscular Hemoglobin 28.5 pg (28.0-33.3); Mean Corpuscular Volume 91.3 fL (83.0-100.0); Mean Platelet Volume 11.7 fL (9.4-12.4); Platelet Count 258 K/mcL (140-400); Red Blood Count 5.61 M/mcL (4.19-5.50); Red Cell Distribution Width 13.4 % (11.5-14.5); White Blood Count 10.4 K/mcL (4.3-11.1)
[2020-11-06] MEDS: Ipratropium 1 PUFF INHALER IH SCH ×4 (03:43→21:50)
[2020-11-06] MEDS ORDERED: *HR* Labetalol 20 MG/4 ML SYRINGE IVP ONE (04:35)
[2020-11-06 04:41] LABS: BUN/Creatinine Ratio 40 (6-26); Blood Urea Nitrogen 39 mg/dL (8-23); C-Reactive Protein 156 mg/L (Less than 10); Calcium 9.4 mg/dL (8.6-10.3); Carbon Dioxide 21 mEq/L (23-29); Chloride 110 mEq/L (98-107); Ferritin > 1500 ng/mL (20-250); Glucose 253 mg/dL (70-105); Lactate Dehydrogenase 622 Units/L (140-271); Magnesium 2.2 mg/dL (1.6-2.6); Osmolality,Calculated 326 (280-300); Potassium 4.2 mEq/L (3.5-5.1); Sodium 149 mEq/L (136-145); eGFR For African Americans > 60 (> 60); eGFR For Non-African Americans > 60 (> 60)
[2020-11-06] MEDS: Dexmedetomidine HCl 400 MCG/100 ML MLS IVC SCH ×2 (08:32→20:10)
[2020-11-06] MEDS: carvediloL 6.25 MG TABLET PO SCH ×2 (08:35→19:02)
[2020-11-06] MEDS: Aspirin Enteric Coated 81 MG Tablet PO SCH (08:35)
[2020-11-06] MEDS: lisinopriL 10 MG TABLET PO SCH (08:35)
[2020-11-06] MEDS: Cholecalciferol (D-3) 1,000 UNIT (25MCG) TABLET PO SCH (08:35)
[2020-11-06] MEDS ORDERED: Lidocaine -MPF 1% 5 ML AMPUL INFILT ONE (10:47)
[2020-11-06] MEDS: Pantoprazole 40 MG VIAL IVP SCH (12:09)
[2020-11-06] MEDS: Dexamethasone Sodium Phos/PF 10 MG/ML VIAL IVP SCH (12:09)
[2020-11-06] MEDS: Insulin DETEMIR 100 UNIT/ML X5UNITS SUBQ SCH ×2 (12:10→20:53)
[2020-11-06 12:17] LABS: Triglycerides 101 mg/dL (< 150)
[2020-11-06] MEDS ORDERED: D10% in Water 500 ML IVC PRN (13:07)
[2020-11-06 15:59] LABS: INR 2.7; Prothrombin Time 29.7 Seconds (9.4-12.1)
[2020-11-06] MEDS ORDERED: Clinimix E 5%-15% SOLUTION 2,000 ML with MVI, adult with vitamin K 10 ML IVC SCH (17:00)
[2020-11-06] MEDS ORDERED: *HR* Warfarin 2.5 MG TABLET PO ONE (19:00)
[2020-11-06] MEDS: QUEtiapine Fumarate 25 MG TABLET PO SCH (19:24)
[2020-11-06] MEDS: Bisacodyl 10 MG RECTAL SUPPOSITORY RC SCH (19:39)
[2020-11-06] MEDS: Piperacillin/Tazobactam 3.375 GM in D5% in Water (Mini-Bag+) 100 ML IVPB SCH (20:11)
[2020-11-07] MEDS: Insulin LISPRO 300 UNITS/3 ML VIAL SUBQ SCH ×6 (00:30→22:00)
[2020-11-07] MEDS: Piperacillin/Tazobactam 3.375 GM in D5% in Water (Mini-Bag+) 100 ML IVPB SCH ×3 (04:26→22:08)
[2020-11-07] MEDS: Ipratropium 1 PUFF INHALER IH SCH ×4 (05:03→21:57)
[2020-11-07 05:45] LABS: Hematocrit 48.5 % (37.5-50.1); Hemoglobin 15.1 g/dL (12.9-16.9); Mean Corpuscular HGB Conc 31.1 g/dL (31.6-35.5); Mean Corpuscular Volume 93.1 fL (83.0-100.0); Mean Platelet Volume 12.3 fL (9.4-12.4); Platelet Count 139 K/mcL (140-400); Red Blood Count 5.21 M/mcL (4.19-5.50); Red Cell Distribution Width 13.6 % (11.5-14.5); White Blood Count 10.1 K/mcL (4.3-11.1)
[2020-11-07 05:52] LABS: BUN/Creatinine Ratio 47 (6-26); Blood Urea Nitrogen 61 mg/dL (8-23); Calcium 9.3 mg/dL (8.6-10.3); Carbon Dioxide 28 mEq/L (23-29); Chloride 112 mEq/L (98-107); Glucose 408 mg/dL (70-105); Magnesium 2.6 mg/dL (1.6-2.6); Osmolality,Calculated 346 (280-300); Phosphorous 4.1 mg/dL (2.7-4.5); Potassium 4.2 mEq/L (3.5-5.1); Sodium 151 mEq/L (136-145); eGFR For African Americans > 60 (> 60); eGFR For Non-African Americans 54 (> 60)
[2020-11-07 06:03] LABS: INR 2.5; Prothrombin Time 27.5 Seconds (9.4-12.1)
[2020-11-07] MEDS: Pantoprazole 40 MG VIAL IVP SCH (07:55)
[2020-11-07] MEDS: Dexamethasone Sodium Phos/PF 10 MG/ML VIAL IVP SCH (07:55)
[2020-11-07] MEDS: Aspirin Enteric Coated 81 MG Tablet PO SCH (07:56)
[2020-11-07] MEDS: carvediloL 6.25 MG TABLET PO SCH ×2 (07:56→17:46)
[2020-11-07] MEDS: Cholecalciferol (D-3) 1,000 UNIT (25MCG) TABLET PO SCH (07:57)
[2020-11-07] MEDS: Insulin DETEMIR 100 UNIT/ML X5UNITS SUBQ SCH ×2 (08:01→22:01)
[2020-11-07] MEDS: Bisacodyl 10 MG RECTAL SUPPOSITORY RC SCH (08:01)
[2020-11-07] MEDS: Dexmedetomidine HCl 400 MCG/100 ML MLS IVC SCH ×2 (08:44→19:29)
[2020-11-07] MEDS ORDERED: Insulin DETEMIR 100 UNIT/ML X5UNITS SUBQ STA (09:15)
[2020-11-07] MEDS ORDERED: *HR* Metoprolol 5 MG/5 ML VIAL IVP PRN (16:25)
[2020-11-07] MEDS ORDERED: Clinimix 5%-20% SOLUTION 2,000 ML with MVI, adult with vitamin K 10 ML, Potassium Pho... IVC SCH (17:00)
[2020-11-07] MEDS ORDERED: *HR* Warfarin 2 MG TABLET PO ONE (18:00)
[2020-11-07] MEDS: QUEtiapine Fumarate 25 MG TABLET PO SCH (22:00)
[2020-11-08] MEDS: Insulin LISPRO 300 UNITS/3 ML VIAL SUBQ SCH ×6 (01:49→20:24)
[2020-11-08 03:29] LABS: INR 2.8; Prothrombin Time 30.9 Seconds (9.4-12.1)
[2020-11-08 03:37] LABS: Magnesium 2.5 mg/dL (1.6-2.6); Phosphorous 3.8 mg/dL (2.7-4.5)
[2020-11-08 03:43] LABS: Alanine Aminotransferase 14 Units/L (7-52); Albumin 2.8 g/dL (3.5-5.7); Albumin/Globulin Ratio 0.8 (1.1-2.2); Alkaline Phosphatase 67 Units/L (34-104); Aspartate Amino Transferase 41 Units/L (13-39); BUN/Creatinine Ratio 47 (6-26); Blood Urea Nitrogen 76 mg/dL (8-23); Calcium 9.5 mg/dL (8.6-10.3); Carbon Dioxide 27 mEq/L (23-29); Chloride 115 mEq/L (98-107); Globulin 3.7 g/dL (2.4-3.5); Glucose 378 mg/dL (70-105); Lactate Dehydrogenase 913 Units/L (140-271); Osmolality,Calculated 356 (280-300); Potassium 3.9 mEq/L (3.5-5.1); Sodium 154 mEq/L (136-145); Total Protein 6.5 g/dL (6.4-8.9); eGFR For African Americans 51 (> 60); eGFR For Non-African Americans 42 (> 60)
[2020-11-08 04:00] LABS: Ferritin > 1500 ng/mL (20-250)
[2020-11-08] MEDS: Ipratropium 1 PUFF INHALER IH SCH ×4 (04:11→22:08)
[2020-11-08] MEDS: Piperacillin/Tazobactam 3.375 GM in D5% in Water (Mini-Bag+) 100 ML IVPB SCH ×3 (04:43→20:25)
[2020-11-08] MEDS: Dexmedetomidine HCl 400 MCG/100 ML MLS IVC SCH ×2 (04:52→16:21)
[2020-11-08] MEDS: Pantoprazole 40 MG VIAL IVP SCH (07:52)
[2020-11-08] MEDS: Dexamethasone Sodium Phos/PF 10 MG/ML VIAL IVP SCH (07:52)
[2020-11-08] MEDS: carvediloL 6.25 MG TABLET PO SCH ×2 (07:53→17:43)
[2020-11-08] MEDS: Aspirin Enteric Coated 81 MG Tablet PO SCH (07:53)
[2020-11-08] MEDS: Bisacodyl 10 MG RECTAL SUPPOSITORY RC SCH (07:54)
[2020-11-08] MEDS: Cholecalciferol (D-3) 1,000 UNIT (25MCG) TABLET PO SCH (07:54)
[2020-11-08] MEDS: Insulin DETEMIR 100 UNIT/ML X5UNITS SUBQ SCH ×2 (07:56→20:25)
[2020-11-08] MEDS ORDERED: D5% in Water 1,000 ML IVC SCH (10:30)
[2020-11-08 16:26] LABS: Basophils % 0.1 %; Hematocrit 51.2 % (37.5-50.1); Hemoglobin 15.7 g/dL (12.9-16.9); Immature Granulocytes % 0.6 % (0-4); Immature Platelets 21.7 % (1.1-6.1); Lymphocytes # 0.5 K/mcL (0.6-4.6); Lymphocytes % 2.8 %; Mean Corpuscular HGB Conc 30.7 g/dL (31.6-35.5); Mean Corpuscular Hemoglobin 28.4 pg (28.0-33.3); Mean Corpuscular Volume 92.8 fL (83.0-100.0); Monocytes # 0.3 K/mcL (0.0-1.3); Monocytes % 1.7 %; Red Blood Count 5.52 M/mcL (4.19-5.50); Red Cell Distribution Width 13.9 % (11.5-14.5); Segmented Neutrophils % 94.8 %; White Blood Count 16.9 K/mcL (4.3-11.1)
[2020-11-08 16:56] LABS: Platelet Count 35 K/mcL (140-400)
[2020-11-08] MEDS ORDERED: Clinimix 5%-20% SOLUTION 2,000 ML with MVI, adult with vitamin K 10 ML, Potassium Pho... IVC SCH (17:00)
[2020-11-08] MEDS: QUEtiapine Fumarate 25 MG TABLET PO SCH (20:35)
[2020-11-08 22:46] LABS: ABG Base Excess -6 mEq/L (-2 to 3); ABG HCO3 16 mEq/L (21-27); ABG Oxygen Saturation 99 % (95-98); ABG PCO2 22 mmHg (35-45); ABG PH 7.46 pH Units (7.32-7.45); ABG PO2 115 mmHg (85-104); ABG TCO2 17 mEq/L (20-26); Blood Gas Pressure Support 6 cm H2O
[2020-11-08] MEDS ORDERED: Ringers Solution, Lactated 250 ML IVC ONE (22:50)
[2020-11-09] MEDS: Insulin LISPRO 300 UNITS/3 ML VIAL SUBQ SCH (00:24)
[2020-11-09 00:31] VITALS: BP 99/78; PULSE 83; TEMP 96.4; O2SAT 88
[2020-11-09] MEDS: Dexmedetomidine HCl 400 MCG/100 ML MLS IVC SCH (01:27)
[2020-11-09] MEDS ORDERED: *HR* Atropine Sulfate 1 MG/10 ML SYRINGE IVP STA (02:23)
[2020-11-09] MEDS: Ipratropium 1 PUFF INHALER IH SCH (04:46)
[2020-11-09] MEDS ORDERED: Dexamethasone Sodium Phos/PF 10 MG/ML VIAL IVP SCH (09:00)
== END 2020-11-09 06:50 | disposition expired | DRG 177 ==
LOC: 3BNU → SUATTDRO 21:50 → 2NENU 11-03 11:59
PROVIDERS: ADMIT Internal Medicine; ATTEND Family Medicine